=== PATIENT | male | born 1940 ===

== ENCOUNTER 2016-11-02 18:27 | Emergency (ER) | payer OTHER, MEDICARE ==
[2016-11-02 18:33] VITALS: RESP 16; TEMP 98; O2SAT 98
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
--- NOTE | 2016-11-02 19:14 | C.PDOC ---
Time Seen by Provider: 11/02/16 18:29 Chief Complaint (Nursing): Upper Extremity Problem/Injury Past Medical History Vital Signs: Last Vital Signs Temp 98 F 11/02/16 18:30 Pulse 98 H 11/02/16 18:30 Resp 16 11/02/16 18:30 BP 139/79 11/02/16 18:30 Pulse Ox 98 11/02/16 18:30 - Medical History PMH: Hypothyroidism Family History: States: Unknown Family Hx - Social History Hx Tobacco Use: No Hx Alcohol Use: No Hx Substance Use: No - Immunization History Hx Tetanus Toxoid Vaccination: No Hx Influenza Vaccination: Yes Hx Pneumococcal Vaccination: No ED Course And Treatment O2 Sat by Pulse Oximetry: 98 Disposition - Disposition Referrals: Flores Negro MD [Staff Provider] - Disposition: HOME/ ROUTINE Disposition Time: 19:13 Condition: GOOD Additional Instructions: Follow up with the Orthopedist within 1-2 days. Return if worsened. Instructions: Wrist Fracture in Adults (ED) Forms: [facility] (Tuvaluan) - Clinical Impression Clinical Impression: Wrist fracture
[2016-11-02 19:24] VITALS: BP 125/78; PULSE 84
--- NOTE | 2016-11-03 09:45 | RAD ---
PROCEDURE: Radiographs of the Right Forearm HISTORY: arm injury COMPARISON: None available. TECHNIQUE: Frontal and lateral views obtained. FINDINGS: BONES: No fracture or destructive lesion. JOINT SPACES: Unremarkable. OTHER FINDINGS: None. IMPRESSION: Unremarkable radiographs of the right forearm.
--- NOTE | 2016-11-03 09:47 | RAD ---
PROCEDURE: Right Wrist Radiographs. HISTORY: pain to the dorsal right wrist COMPARISON: None. FINDINGS: BONES: Normal. No fracture. JOINTS: Normal. No dislocation. SOFT TISSUES: Normal. OTHER FINDINGS: None. IMPRESSION: Normal right wrist radiographs.
== END 2016-11-02 19:23 | disposition home or self-care (01) ==
LOC: C.ER 18:27
DX: S62.101A Fracture of unspecified carpal bone, right wrist, initial encounter for closed fracture (principal); V89.2XXA Person injured in unspecified motor-vehicle accident, traffic, initial encounter

== ENCOUNTER 2017-07-23 15:30 | Emergency (ER) | payer MEDICARE ==
[2017-07-23 15:35] VITALS: BMI 248.3
[2017-07-23 17:51] VITALS: BP 135/68; PULSE 80; RESP 18; TEMP 98.2; O2SAT 99
--- NOTE | 2017-07-23 18:04 | C.PDOC ---
History Of Present Illness 85 y/o male presents to the ED complaining of right ankle pain and swelling. States he accidentally twisted the right ankle while going down stairs this afternoon. Denies any other injuries. No changes in sensation. Time Seen by Provider: 07/23/17 16:09 Chief Complaint (Nursing): Lower Extremity Problem/Injury History Per: Patient History/Exam Limitations: no limitations Onset/Duration Of Symptoms: Hrs Current Symptoms Are (Timing): Still Present Past Medical History Reviewed: Historical Data, Nursing Documentation, Vital Signs Vital Signs: Last Vital Signs Temp 98.2 F 07/23/17 17:50 Pulse 80 07/23/17 17:50 Resp 18 07/23/17 17:50 BP 135/68 07/23/17 17:50 Pulse Ox 99 07/23/17 20:08 - Medical History PMH: Hypothyroidism Family History: States: Unknown Family Hx - Social History Hx Tobacco Use: No Hx Alcohol Use: No Hx Substance Use: No - Immunization History Hx Tetanus Toxoid Vaccination: No Hx Influenza Vaccination: Yes Hx Pneumococcal Vaccination: No Review Of Systems Except As Marked, All Systems Reviewed And Found Negative. Musculoskeletal: Positive for: Foot Pain Neurological: Negative for: Weakness, Numbness Physical Exam - Physical Exam Appears: Non-toxic, No Acute Distress Skin: Normal Color, Warm, Dry Head: Atraumatic, Normacephalic Eye(s): bilateral: Normal Inspection, PERRL, EOMI Oral Mucosa: Moist Neck: Normal ROM Chest: Symmetrical Respiratory: No Accessory Muscle Use Extremity: Normal ROM, Tenderness (to lateral malleolus of right ankle), No Deformity, Swelling (mild swelling to lateral malleolus) Pulses: Left Dorsalis Pedis: Normal, Right Dorsalis Pedis: Normal Neurological/Psych: Oriented x3, Normal Speech, Normal Motor, Normal Sensation ED Course And Treatment O2 Sat by Pulse Oximetry: 99 (RA) Pulse Ox Interpretation: Normal - Other Rad XR R ANKLE X-Ray: Read By Radiologist Interpretation: FINDINGS: BONES: Normal. No fracture. JOINTS: Normal. No osteoarthritis. Ankle mortise maintained. Talar dome intact. SOFT TISSUES: Lateral soft tissue swelling without distal fibular or talar abnormality. OTHER FINDINGS: None. IMPRESSION: Soft tissue swelling without acute articular or osseous abnormality. Progress Note: X-ray obtained, and is negative. Air cast applied with ortho shoe. Also provided patient with walker. Patient is stable for d/c home. Advised to follow up with primary doctor or orthopedist in 1-2 days Disposition - Disposition Referrals: Veronika Huerta MD [Staff Provider] - Disposition: HOME/ ROUTINE Disposition Time: 18:03 Condition: STABLE Additional Instructions: Follow up with PMD and Orthopedist within 1-2 days. Return to ED immediately if feel worse. 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 - Scribe Statement The provider has reviewed the documentation as recorded by the Scribe (Connie Rivera) All medical record entries made by the Scribe were at my direction and personally dictated by me. I have reviewed the chart and agree that the record accurately reflects my personal performance of the history, physical exam, medical decision making, and the department course for this patient. I have also personally directed, reviewed, and agree with the discharge instructions and disposition.
--- NOTE | 2017-07-23 18:15 | RAD ---
PROCEDURE: Right Ankle Radiographs. HISTORY: injury COMPARISON: None FINDINGS: BONES: Normal. No fracture. JOINTS: Normal. No osteoarthritis. Ankle mortise maintained. Talar dome intact SOFT TISSUES: Lateral soft tissue swelling without distal fibular or talar abnormality. OTHER FINDINGS: None. IMPRESSION: Soft tissue swelling without acute articular or osseous abnormality.
== END 2017-07-23 18:09 | disposition home or self-care (01) ==
LOC: EDBD 15:30 → C.ER 15:30
DX: S93.401A Sprain of unspecified ligament of right ankle, initial encounter (principal); X50.1XXA Overexertion from prolonged static or awkward postures, initial encounter; Y92.89 Other specified places as the place of occurrence of the external cause